=== PATIENT | female | born 1990 | race African-American/Black ===

== ENCOUNTER → 2017-10-18 16:55 | Outpatient (CLI) | payer MEDICAID ==
[2015-12-10 18:24] VITALS: BMI 33.3
[~2017-10-18 16:55] MED LIST: BENADRYL25 MG PO; IBUPROFEN600 MG PO; MOTRIN600 MG PO; PERCOCET 5-3251 TAB PO; PERCOCET 5/3251 TA1 PO; PRENATAL COMPLE1 TAB PO; TYLENOL 325 MG325 MG PO
== END | disposition home or self-care (01) ==
LOC: D.MAMMO 16:00
DX: Z12.31 Encounter for screening mammogram for malignant neoplasm of breast (principal); Z80.3 Family history of malignant neoplasm of breast

== ENCOUNTER 2017-11-05 04:30 | Emergency (ER) | payer MEDICAID ==
[2015-12-10 18:24] VITALS: BMI 33.3
[2017-11-05 05:11] LABS: APPEARANCE HAZY (CLEAR); BACTERIA MODERATE /hpf (NONE SEEN); BILIRUBIN NEGATIVE (NEGATIVE); COLOR YELLOW (YELLOW); EPITHELIAL CELLS 0-5 /hpf (0-5); GLUCOSE NEGATIVE (NEGATIVE); KETONE NEGATIVE (NEGATIVE); NITRITE NEGATIVE (NEGATIVE); PROTEIN TRACE mg/dL (NEGATIVE); SPECIFIC GRAVITY 1.015 (1.005-1.020); UROBILINOGEN NORMAL (NORMAL); WHITE CELLS - URINE >50 /hpf (0-5)
== END 2017-11-05 04:47 | disposition home or self-care (01) ==
LOC: D.ER 04:30
PROVIDERS: Emergency Medicine
DX: N39.0 Urinary tract infection, site not specified (principal)

== ENCOUNTER → 2017-11-20 16:57 | Outpatient (CLI) | payer MEDICAID ==
[2015-12-10 18:24] VITALS: BMI 33.3
== END | disposition home or self-care (01) ==
LOC: D.MAMMO 13:00
DX: R92.8 Other abnormal and inconclusive findings on diagnostic imaging of breast (principal)

== ENCOUNTER → 2018-08-11 10:47 | Outpatient (CLI) | payer MEDICAID ==
[2015-12-10 18:24] VITALS: BMI 33.3
== END | disposition home or self-care (01) ==
LOC: D.LDO 10:47
DX: O26.893 Other specified pregnancy related conditions, third trimester (principal); Z3A.39 39 weeks gestation of pregnancy

== ENCOUNTER → 2018-08-13 07:45 | Outpatient (CLI) | payer MEDICAID ==
[2015-12-10 18:24] VITALS: BMI 33.3
== END | disposition home or self-care (01) ==
LOC: D.LDO 07:45
DX: O26.893 Other specified pregnancy related conditions, third trimester (principal); Z3A.39 39 weeks gestation of pregnancy

== ENCOUNTER 2018-08-13 18:48 | Inpatient (IN) | payer MEDICAID ==
[~2018-08-13] VITALS: Ht 172.7 cm; Wt 103.0 kg
--- NOTE | ~2018-08-13 | DS ---
PATIENT:OSMAR TEMPLETON :88 MEDICAL RECORD: [id number] DISCHARGE SUMMARY ADMISSION DATE: 08/13/18 DISCHARGE DATE: 08/15/18 DATE OF ADMISSION: 08/13/2018 DATE OF DISCHARGE: 08/15/2018 ADMISSION DIAGNOSIS: Active labor. DISCHARGE DIAGNOSIS: Mother delivered at 39 weeks. PROCEDURE: Vaginal delivery. ATTENDING: Royce Romero MD HISTORY OF PRESENT ILLNESS: See the H&P in the chart. SUMMARY OF HOSPITALIZATION: The patient was admitted and delivered without incident. At the time of discharge, she is reporting minimal to scant lochia with a firm uterus below the umbilicus. The patient has been given standard precautions and will be on a control pill for her contraception. Follow up in 6 weeks. TRANSINT:[id number] Voice Confirmation ID: [id number] DOCUMENT ID: [id number] ROYCE ROMERO MD CC: [id number] DICTATION DATE: 08/15/18 1247 TOLL SETTLEMENT CLERK: 08/15/18 2338 DIS IN 08/15/18 [id number] [place] [address]
--- NOTE | ~2018-08-13 | OP ---
PATIENT NAME: OSMAR TEMPLETON MEDICAL RECORD: [id number] :88 LOCATION:[id number] ADMISSION DATE:08/13/18 SURGEON: ROYCE ROMERO MD DATE OF OPERATION: 08/13/2018 PREDELIVERY DIAGNOSIS: Active labor at 39 weeks. POSTDELIVERY DIAGNOSIS: Mother delivered at 39 weeks. PROCEDURE: Vaginal delivery ANESTHETIC: Continuous lumbar epidural. ANESTHESIOLOGIST: Dr. Denson. FINDINGS: Viable male infant in LIZBETH presentation, Apgars were 9 and 9, weight is pending at the time of this dictation. Perineal abrasions. No vaginal lacerations. Placenta spontaneous and intact. ESTIMATED BLOOD LOSS: 350 cc. DISPOSITION: Mother and recovered in the room. TRANSINT:[id number] Voice Confirmation ID: [id number] DOCUMENT ID: [id number] ROYCE ROMERO MD at 0605 CC: [id number] DICTATION DATE: 08/13/182241 CORRECTIONS OFFICER: 08/13/18 2343 ADM IN [id number] [place] [address]
[2018-08-13 19:26] LABS: HEMATOCRIT 31.9 % (36.0-48.0); HEMOGLOBIN 10.6 g/dL (12-16); MCH 29.4 pg (26.0-34.0); MCHC 33.2 g/dL (31.0-37.0); MCV 88.4 fL (80.0-100.0); MEAN PLATELET VOLUME 11.4 fL (7.4-10.4); RBC 3.61 10x6/uL (4.00-5.40); RDW 13.5 % (11.5-14.5); WBC 7.7 10x3/uL (4.8-10.8)
[2018-08-13 19:49] VITALS: BP 120/65; Ht 172.7 cm; Wt 103.0 kg
[2018-08-14 00:19] VITALS: BP 143/89
[2018-08-14 05:51] LABS: BASOPHILS 0.1 % (0-2); EOSINOPHILS 0.1 % (0-7); HEMATOCRIT 30.4 % (36.0-48.0); HEMOGLOBIN 10.3 g/dL (12-16); IMMATURE GRANULOCYTES 0.2 % (0-5); LYMPHOCYTES 14.7 % (15-50); MCH 29.6 pg (26.0-34.0); MCHC 33.9 g/dL (31.0-37.0); MCV 87.4 fL (80.0-100.0); MEAN PLATELET VOLUME 11.5 fL (7.4-10.4); MONOCYTES 16.4 % (2-11); NEUTROPHILS 68.5 % (40-80); PLATELET COUNT 179 10x3/uL (130-400); RBC 3.48 10x6/uL (4.00-5.40); RDW 13.5 % (11.5-14.5)
[2018-08-14 08:44] VITALS: BP 111/66
[2018-08-14 14:22] VITALS: BP 126/83
[2018-08-14 17:32] VITALS: BP 110/61
[2018-08-14 19:30] VITALS: BP 117/72
[2018-08-15 06:10] LABS: RAPID PLASMA REAGIN Non Reactive (Non Reactive)
== END 2018-08-15 14:30 | disposition home or self-care (01) | DRG 807 ==
LOC: D.LD 18:48
PROVIDERS: Obstetrics & Gynecology
PROC: 10E0XZZ Delivery of Products of Conception, External Approach (ICD-10-PCS; principal; 2018-08-13)
DX: O80 Encounter for full-term uncomplicated delivery (principal); Z37.0 Single live birth; Z3A.39 39 weeks gestation of pregnancy

== ENCOUNTER 2020-05-03 16:56 | Emergency (ER) | payer OTHER ==
[~2020-05-03] VITALS: Ht 172.7 cm; Wt 88.6 kg
[2020-05-03 17:12] VITALS: BP 147/98; Ht 172.7 cm; Wt 88.6 kg
== END 2020-05-03 19:20 | disposition home or self-care (01) ==
LOC: D.ER 16:56
DX: S61.012A Laceration without foreign body of left thumb without damage to nail, initial encounter (principal); W26.8XXA Contact with other sharp object(s), not elsewhere classified, initial encounter; Y93.9 Activity, unspecified; Y92.9 Unspecified place or not applicable

== ENCOUNTER 2020-05-11 18:26 | Emergency (ER) | payer OTHER ==
[~2020-05-11] VITALS: Ht 172.7 cm; Wt 86.4 kg
[2020-05-11 18:57] VITALS: BP 139/98; Ht 172.7 cm; Wt 86.4 kg
== END 2020-05-11 20:13 | disposition home or self-care (01) ==
LOC: D.ER 18:26
DX: S61.012A Laceration without foreign body of left thumb without damage to nail, initial encounter (principal); X58.XXXA Exposure to other specified factors, initial encounter